=== PATIENT | female | born 2000 | race Two or more races ===

== ENCOUNTER 2023-09-11 18:16 | Emergency (ER) | payer MEDICAID ==
[2023-09-11] MEDS ORDERED: ONDANSETRON ODT 4 MG TAB PO ONE (18:30)
== END 2023-09-11 18:46 | disposition left against medical advice (07) ==
LOC: ER 18:16
DX: R11.2 Nausea with vomiting, unspecified (principal); Z53.21 Procedure and treatment not carried out due to patient leaving prior to being seen by health care provider